=== PATIENT | female | born 1970 ===

== ENCOUNTER 2022-09-20 14:28 | Emergency (ER) | payer OTHER, SELFPAY ==
[2022-09-20 14:47] VITALS: BP 111/77; PULSE 71; RESP 18; TEMP 36.4; O2SAT 99
[2022-09-20 15:06] VITALS: BP 111/77; PULSE 71; RESP 18; TEMP 36.4; O2SAT 99
--- NOTE | 2022-09-20 16:12 | ED.GENADULT ---
HPI - General Adult General Chief complaint: Skin/Abscess/Foreign Body Stated complaint: rash Source: patient Mode of arrival: ambulatory Limitations: no limitations History of Present Illness HPI narrative: Patient presents for evaluation of irritation, burning and itching to the skin between her buttocks for the last 2 days. She indicates the day prior she had a colonoscopy. She has not had a bowel movement since that time. She has internal hemorrhoids and states that she was told her colonoscopy was normal. She is wondering whether she may be irritated from the procedure or whether this could be irritated from frequent bowel movements with prep for the procedure. Related Data Allergies Allergy/AdvReac Type Severity Reaction Status Date / Time Penicillins Allergy Mild RASH Verified 09/20/22 14:55 Review of Systems Review of Systems: CONSTITUTIONAL: Denies fever, chills, or sweats. EYES: Denies visual changes, redness, or discharge. ENT: Denies rhinorrhea, congestion, sore throat, or otalgia. CARDIOVASCULAR: Denies chest pain, palpitations, or edema. RESPIRATORY: Denies cough or dyspnea. GASTROINTESTINAL: Denies abdominal pain, nausea, vomiting, or diarrhea. GENITOURINARY: Denies dysuria or hematuria. SKIN: Reports burning, itching and irritation to the skin between her buttocks MUSCULOSKELETAL: Denies back pain, joint pain, or myalgia. NEUROLOGIC: Denies headache, numbness, dizziness, or weakness. PSYCHIATRIC: Denies anxiety or depression. PMFSH Past Medical History Medical History Anxiety Depression Migraine Surgical History Surgical History No pertinent past surgical history Family History Family History Mother Family history non-contributory Social History Social History Gender identity (if verbalized by the patient): Female Spiritual care concerns: No Exam Narrative: GENERAL: Well-appearing, well-nourished, and in no acute distress. HEAD: Normocephalic, atraumatic. EYES: PERRLA and EOMI. ENT: Nares clear, no rhinorrhea or epistaxis. Mucous membranes moist. Oropharynx without tonsillar hypertrophy exudate or other lesions. Bilateral TMs pearly ovalle nonbulging NECK: Supple. No adenopathy or masses. No carotid bruits or JVD CHEST: Clear to auscultation. No respiratory distress. No wheezes rales or rhonchi HEART: Regular rate and rhythm. No murmur heard. Normal peripheral pulses. ABDOMEN: Soft, nontender, nondistended, normal active bowel sounds. EXTREMITIES: Normal range of motion. No edema. SKIN: There is erythema noted to to in her gluteal fold bilaterally. Exam performed with leadership program intern, Alessia NEURO: No focal deficits. Alert and oriented x3. PSYCH: Normal mood and affect. Course Course Emergency Course: This is a 51-year-old female who presented for evaluation of redness and irritation to the skin between her buttocks. Exam is consistent with tinea. Will provide her with a prescription for ketoconazole. If she has limited improvement she can try triamcinolone. Will give her a paper script for that so that she does not need to pay for both prescriptions today. Follow up with primary. Go to ER for decline in condition. Pt in agreement with plan of care. Level of Care: Express Care Visit Vital Signs Vital signs: Vital Signs Temperature 36.4 C L 09/20/22 14:47 Pulse Rate 71 09/20/22 14:47 Respiratory Rate 18 09/20/22 14:47 Blood Pressure 111/77 09/20/22 14:47 Pulse Oximetry 99 09/20/22 14:47 Oxygen Delivery Room Air 09/20/22 14:47 Temperature 36.4 C L 09/20/22 15:06 Pulse Rate 71 09/20/22 15:06 Respiratory Rate 18 09/20/22 15:06 Blood Pressure 111/77 09/20/22 15:06 Pulse Oximetry 99 09/20/22 15:06 Oxygen Delivery
== END 2022-09-20 16:23 | disposition home or self-care (01) ==
PROVIDERS: Emergency Provider Nurse Practitioner
DX: B35.9 Dermatophytosis, unspecified (principal)
CPT/HCPCS: 99203; G0463